=== PATIENT | male | born 1970 | race Caucasian/White ===

== ENCOUNTER 2024-05-01 07:26 | Emergency (ER) | payer OTHER, BC, SELFPAY ==
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
[2024-05-01 07:30] VITALS: BP 140/91; PULSE 68; RESP 16; TEMP 36.8; O2SAT 97
[2024-05-01] MEDS: MORPHINE SULFATE (*CRX) 4 MG/ML INJ IV PUSH ×2 (07:53→10:16)
[2024-05-01 08:10] LABS: Basophils Percent Auto 0.5 % (0.2-1.2); Eosinophils Absolute Auto 0.2 K/mm3 (0-0.3); Eosinophils Percent Auto 1.9 % (0-4.4); Hematocrit 43.8 % (42.0-52.0); Hemoglobin 14.9 g/dL (14.0-18.0); Immature Granulocyte Absolute 0.03 K/mm3 (0.00-0.031); Immature Granulocyte Percent A 0.4 % (0-0.5); Lymphocytes Absolute Auto 1.26 K/mm3 (0.9-3.2); Mean Corpuscular Hemoglobin 31.8 pg (26-34); Mean Corpuscular Volume 93.6 fl (80-100); Mean Platelet Volume 9.6 fl (7.4-10.4); Monocytes Absolute Auto 0.9 K/mm3 (0.1-0.6); Monocytes Percent Auto 10.9 % (2.6-8.5); Neutrophils Percent Auto 71.3 % (45.5-73.1); Platelet Count Result 201 k/mm3 (150-375); Red Blood Count 4.68 M/mm3 (4.6-6.20); Red Cell Distribution Width 12.3 % (11.5-14.5); White Blood Count 8.4 K/mm3 (4.5-10.0)
[2024-05-01 08:18] LABS: Estimated CRCL calculation 73 ml/min; Estimated Glomerular Filt Rate > 60
[2024-05-01 08:20] LABS: Alanine Aminotransferase 24 U/L (6-50); Albumin Level 4.5 g/dL (3.5-5.1); Alkaline Phosphatase 64 U/L (38-126); Anion Gap 3 mmol/L (4-12); Aspartate Amino Transferase 31 U/L (17-59); Bilirubin,Total 1.1 mg/dL (0.2-1.3); Blood Urea Nitrogen 13 mg/dL (9-20); Calcium 9.1 mg/dL (8.4-10.2); Carbon Dioxide 29 mmol/L (22-30); Chloride 106 mmol/L (98-107); Estimated CRCL calculation 80 ml/min; Estimated Glomerular Filt Rate > 60; Glucose 111 mg/dL (65-110); Potassium 4.4 mmol/L (3.4-5.0); Sodium 138 mmol/L (137-145)
[2024-05-01 08:26] LABS: Add Urine Microscopic? YES; Appearance Urine Clear (Clear); Bilirubin Urine Negative (Negative); Blood Urine 1+ (Negative); Color Urine Yellow (Yellow); Glucose Urine UA Negative (Negative); Ketones Urine Trace mg/dL (Negative); Leukocyte Esterase Ur 1+ LEU/UL (Negative); Nitrate Urine Negative (Negative); Protein Urine 1+ mg/dL (Negative); Specific Grav Ur 1.025 (1.001-1.035); pH Urine 6.5 (5.0-9.0)
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
[2024-05-01 08:46] LABS: Bacteria Urine None Seen /hpf; Non Pathogenic Casts 0-2; Squamous Epithelial Cell Urine None Seen /hpf (Few)
[2024-05-01 08:48] VITALS: BP 126/82; PULSE 69; RESP 16; O2SAT 95
[2024-05-01 11:02] VITALS: BP 129/81; PULSE 71; RESP 16; TEMP 36.4; O2SAT 96
== END 2024-05-01 11:07 | disposition home or self-care (01) ==
PROVIDERS: Emergency Provider Emergency Medicine
DX: S32.019A Unspecified fracture of first lumbar vertebra, initial encounter for closed fracture (principal); S32.029A Unspecified fracture of second lumbar vertebra, initial encounter for closed fracture; S32.039A Unspecified fracture of third lumbar vertebra, initial encounter for closed fracture; W18.2XXA Fall in (into) shower or empty bathtub, initial encounter; N39.0 Urinary tract infection, site not specified
CPT/HCPCS: 36415; 74177; 80053; 81001; 85025; 87086; 96374; 96376; 99284; J2270; Q9967

== ENCOUNTER 2024-11-13 10:38 | Inpatient (IN) | payer BC, SELFPAY ==
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
[2024-11-13 10:46] VITALS: BP 135/84; PULSE 77; RESP 18; TEMP 36.8; O2SAT 99
[2024-11-13] MEDS: MORPHINE SULFATE (*CRX) 4 MG/ML INJ IV PUSH (11:39)
[2024-11-13 11:44] LABS: Hematocrit 44.4 % (42.0-52.0); Hemoglobin 14.7 g/dL (14.0-18.0); Immature Granulocyte Percent A 0.8 % (0-0.5); Lymphocytes Absolute Auto 0.77 K/mm3 (0.9-3.2); Mean Corpuscular HGB Conc 33.1 g/dl (32-36); Mean Corpuscular Hemoglobin 30.7 pg (26-34); Mean Corpuscular Volume 92.7 fl (80-100); Nucleated Red Blood Cells Absolute Auto 0.000 K/mm3 (0.0-0.012); Nucleated Red Blood Cells Perc 0.0 % (0.0-0.2); Platelet Count Result 175 k/mm3 (150-375); Red Blood Count 4.79 M/mm3 (4.6-6.20); White Blood Count 11.0 K/mm3 (4.5-10.0)
[2024-11-13 11:55] LABS: INR 1.1; Prothrombin Time 14.6 Seconds (11.1-14.7)
[2024-11-13 11:56] LABS: Alanine Aminotransferase 27 U/L (6-50); Albumin Level 4.4 g/dL (3.5-5.1); Alkaline Phosphatase 69 U/L (38-126); Anion Gap 8 mmol/L (4-12); Aspartate Amino Transferase 34 U/L (17-59); Bilirubin,Total 0.9 mg/dL (0.2-1.3); Blood Urea Nitrogen 17 mg/dL (9-20); Calcium 9.4 mg/dL (8.4-10.2); Carbon Dioxide 26 mmol/L (22-30); Chloride 106 mmol/L (98-107); Estimated CRCL calculation 68 ml/min; Estimated Glomerular Filt Rate > 60; Glucose 110 mg/dL (65-110); Partial Thromboplastin Time 24.4 Seconds (22.3-36.8); Potassium 4.4 mmol/L (3.4-5.0); Sodium 140 mmol/L (137-145); Total Protein 8.0 g/dL (6.3-8.2)
[2024-11-13 12:01] VITALS: PULSE 74; RESP 16; O2SAT 100
--- NOTE | 2024-11-13 12:09 | PC.NURSE ---
MD made aware of pt continued pain.
[2024-11-13] MEDS: HYDROmorphone HCL INJ (*CRX) 2 MG/ML VIAL 1 MG IV PUSH ×3 (12:13→21:28)
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
[2024-11-13 12:21] VITALS: BP 130/88
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
[2024-11-13 13:30] VITALS: BP 139/94; PULSE 97; RESP 20; O2SAT 96
[2024-11-13 15:00] VITALS: BMI 28.7
[2024-11-13 15:40] LABS: Add Urine Microscopic? YES; Appearance Urine Clear (Clear); Glucose Urine UA Negative (Negative); Leukocyte Esterase Ur Trace LEU/UL (Negative); Nitrate Urine Negative (Negative); Specific Grav Ur 1.026 (1.001-1.035)
[2024-11-13 15:41] LABS: Non Pathogenic Casts 0-2
--- NOTE | 2024-11-13 15:50 | ADMGEN ---
This patient, Apolinar Zepeda, was admitted to [address] [place] [address] Room 300-01. Patient/family oriented to hospital policies and general routines including ID bracelet, bed and alarms, visiting hours, pain management, procedures, bathroom and other care routines, personal items, smoking policy, room service/diet, and visiting hours. Information on how to activate the Rapid Response Team has been discussed. Patient/Family are encouraged to report perceived risks to care and to ask questions if they do not understand what they are told or what they should do.
[2024-11-13] MEDS: LACTATED RINGERS 1,000 ML 75 ML IV CONT (16:09)
[2024-11-13 21:01] VITALS: O2SAT 96
[2024-11-13 21:32] VITALS: BP 127/79; PULSE 84; RESP 20; TEMP 38.4; O2SAT 96
[2024-11-13] MEDS: HYDROcodone/acetaminophen (*CRX) 5-325 MG TABLET 1 TAB PO (22:11)
[2024-11-14] VITALS (12 sets, daily range): BP systolic 110–132; BP diastolic 64–82; PULSE 68–83; RESP 12–18; TEMP 36.4–37.7; O2SAT 93–99
[2024-11-14] MEDS: HYDROmorphone HCL INJ (*CRX) 2 MG/ML VIAL 1 MG IV PUSH ×2 (04:14→11:26)
--- NOTE | 2024-11-14 08:14 | ECG_ITS ---
Test Date: 2024-11-14 08:18:23 Measurements Intervals [place] Rate: 73 P: 23 UT: 205 QRS: 12 QRSD: 102 T: 34 QT: 372 QTc: 410 Interpretive Statements SINUS RHYTHM BASELINE ARTIFACT- I, II, III, AVR, AVL, AVF NORMAL ECG No previous ECG available for comparison Electronically Signed On 11-14-2024 08:33:24 CDT by Alessandro Yuen D.O.
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
--- NOTE | 2024-11-14 08:31 | WPDHPUPDATE1 ---
History and Physical Update Update Date/Time: 11/14/24 08:31 History and Physical has been reviewed, including an updated exam of the patient. There are NO changes in the patient's condition. Risks, benefits, and alternatives have been discussed and questions answered. Patient agrees to proceed with procedure. The procedure which is a left hip percutaneous screw fixation was discussed with his significant other Mary and also with the patient. They understand the risks benefits alternatives and complications of this procedure. They include but are not limited to infection nonunion malunion, loss of blood supply to the femoral head, DVT, possibility of the requirement for a total hip arthroplasty in the event of malunion nonunion or loss of blood supply to the femoral head. They understand the treatment plan and agree that this is the best course of action given the patient's age and activity level. He will be toe-touch weight-bearing for a period of 6 weeks. He will be anticoagulated with aspirin 81 mg twice a day for 6 weeks.
[2024-11-14] MEDS: BUPIVACAINE/EPINEPHRINE 0.5% 30 ML VIAL INFILTRATE (09:22)
[2024-11-14] MEDS: KETOROLAC 15 MG/ML VIAL (*BKC) IV PUSH (09:42)
[2024-11-14] MEDS: LACTATED RINGERS 1,000 ML 30 ML IV CONT (09:53)
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
--- NOTE | 2024-11-14 10:10 | WPDANESEPPF ---
Anes - Initial Pre Proc Eval Procedure: Operation Date: 11/14/24 08:00 Proposed Procedures p Hip Pinning Cannulated Screws(Left) - Kevin Brannon MD Date/Time: 11/14/24 10:10 Surgeon: Edward Cantu MD Pre Op Diagnosis: Hip fracture Patient Data Age: 53 Gender: M Height: 1.78 m Weight: 90.9 kg Last Vital Signs Temp 36.8 C 11/14/24 09:53 Pulse 73 11/14/24 09:53 Resp 12 11/14/24 09:53 BP 110/69 11/14/24 09:53 Pulse Ox 93 11/14/24 09:53 O2 Del Method Simple Face Mask 11/14/24 09:53 O2 Flow Rate 10 11/14/24 09:53 FiO2 21 11/13/24 21:01 Allergies Allergy/AdvReac Type Severity Reaction Status Date / Time No Known Allergies Allergy Verified 05/01/24 07:29 Home Medications ?Medication ?Instructions ?Recorded ?Confirmed ?Type bupropion HCl 150 mg 24 hr tablet, 150 mg PO DAILY 11/13/24 11/13/24 History extended release sertraline 100 mg tablet 150 mg PO DAILY 11/13/24 11/13/24 History Laboratory Tests 11/13/24 11/13/24 11:39 15:27 WBC 11.0 H K/mm3 (4.5-10.0) RBC 4.79 M/mm3 (4.6-6.20) Hgb 14.7 g/dL (14.0-18.0) Hct 44.4 % (42.0-52.0) MCV 92.7 fl (80-100) MCH 30.7 pg (26-34) MCHC 33.1 g/dl (32-36) RDW 13.5 % (11.5-14.5) Plt Count 175 k/mm3 (150-375) MPV 9.6 fl (7.4-10.4) Immature Gran % (Auto) 0.8 H % (0-0.5) Neut % (Auto) 82.9 H % (45.5-73.1) Lymph % (Auto) 7.0 L % (18.3-44.2) [place] % (Auto) 7.8 % (2.6-8.5) Eos % (Auto) 1.1 % (0-4.4) Baso % (Auto) 0.4 % (0.2-1.2) Lymph # (Auto) 0.77 L K/mm3 (0.9-3.2) [place] # (Auto) 0.9 H K/mm3 (0.1-0.6) Eos # (Auto) 0.1 K/mm3 (0-0.3) Baso # (Auto) 0.0 K/mm3 (0.0-0.1) Abs Immat Gran (auto) 0.09 H K/mm3 (0.00-0.031) Absolute Neuts (auto) 9.1 H K/mm3 (1.3-6.7) Absolute Nucleated RBC 0.000 K/mm3 (0.0-0.012) Nucleated RBC % 0.0 % (0.0-0.2) PT 14.6 Seconds (11.1-14.7) INR 1.1 APTT 24.4 Seconds (22.3-36.8) Sodium 140 mmol/L (137-145) Potassium 4.4 mmol/L (3.4-5.0) Chloride 106 mmol/L (98-107) Carbon Dioxide 26 mmol/L (22-30) Anion Gap 8 mmol/L (4-12) BUN 17 mg/dL (9-20) Creatinine 1.19 mg/dL (0.7-1.3) Estim Creat Clear Calc 68 ml/min Estimated GFR > 60 (59 - ) Glucose 110 mg/dL (65-110) Calcium 9.4 mg/dL (8.4-10.2) Total Bilirubin 0.9 mg/dL (0.2-1.3) AST 34 U/L (17-59) ALT 27 U/L (6-50) Alkaline Phosphatase 69 U/L (38-126) Total Protein 8.0 g/dL (6.3-8.2) Albumin 4.4 g/dL (3.5-5.1) Urine Color Dark yellow (Yellow) Urine Appearance Clear (Clear) Urine pH 5.5 (5.0-9.0) Ur Specific [place] 1.026 (1.001-1.035) Urine Protein 1+ H mg/dL (Negative) Urine Glucose (UA) Negative mg/dL (Negative) Urine Ketones 2+ H mg/dL (Negative) Ur Blood (Man) Negative (Negative) Urine Nitrate Negative (Negative) Urine Bilirubin Negative (Negative) Urine Urobilinogen 1.0 mg/dL (<2.0) Leukocyte Esterase Rfl Trace H GURWINDER/UL (Negative) Urine RBC 0-2 /hpf (0-2) Urine WBC 0-5 /hpf (0-3) Ur Squamous Epith Cells None seen /hpf (Few) Urine Bacteria None seen /hpf Urine Casts 0-2 Blood Type A Positive Antibody Screen Negative Patient hx anesthesia problems: none Family hx anesthesia problems: none Results Review: All pre-operative results and documents have been reviewed as part of the pre-operative evaluation. [facility] Past Medical History Medical History (Updated 11/14/24 @ 10:18 by Orlando Milian DO) Bicuspid aortic valve Closed right ankle fracture Depression Social History Social History (Updated 11/14/24 @ 10:10 by Orlando Milian DO) Smoking status: Never smoker Alcohol intake: current Drinks per week: 14 Substance use type: marijuana Other substance usage details: daily Do You Feel Safe in your Home?: Yes Lack of Transportation: No Lack of Food: Never True Current Housing: I Have Housing Concerned About Future Housing: No Difficulty Paying Gas/Electric Bills: No Difficulty Paying for Meds: No Currently Unemployed: No Education: Bachelor's Degree Difficulty w/ Childcare or Family Care: No Spiritual care concerns: No Anes - Eval Final PreProcedure Day of Procedure 11/14/24 10:10 Patient weight: overweight Heart: regular rate and rhythm Lungs: clear to auscultation Airway: Mallampati scale class II Neurological: alert and oriented Last oral intake: >/= 8 hours ASA classification: III Emergent: no Anesthetic plan: proceed Anesthesia type and monitoring: general LMA and standard monitoring Results Review: All pre-operative results and documents have been reviewed as part of the pre-operative evaluation. Informed Consent: The patient's anesthetic plan and its attendant risks and benefits were discussed with the patient/family/POA. Questions were solicited and answers provided to the satisfaction of the patient/family/POA.
[2024-11-14] MEDS: buPROPion HCL XL (24 HR) 150 MG TABCR PO (11:25)
[2024-11-14] MEDS: SERTRALINE HCL 50 MG TABLET 150 MG PO (11:26)
[2024-11-14] MEDS: ACETAMINOPHEN 325 MG TABLET 650 MG PO ×2 (11:27→17:04)
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
[2024-11-14] MEDS: SENNA/DOCUSATE SODIUM TABLET 2 TAB PO (17:04)
[2024-11-14] MEDS: ceFAZolin 2 GM/D5W 50 ML 2 GM/50 ML BAG IVPB (17:04)
[2024-11-14] MEDS: HYDROcodone/acetaminophen (*CRX) 5-325 MG TABLET 1 TAB PO ×2 (17:11→20:57)
[2024-11-14] MEDS: FAMOTIDINE 20 MG TABLET PO (20:58)
[2024-11-15] MEDS: ceFAZolin 2 GM/D5W 50 ML 2 GM/50 ML BAG IVPB ×2 (01:04→09:52)
[2024-11-15] MEDS: HYDROcodone/acetaminophen (*CRX) 5-325 MG TABLET 1 TAB PO ×3 (01:04→20:10)
[2024-11-15] MEDS: HYDROcodone/acetaminophen (*CRX) 10-325 MG TABLET 1 TAB PO ×3 (02:09→17:10)
[2024-11-15 04:46] VITALS: BP 126/62; PULSE 77; RESP 20; TEMP 36.4; O2SAT 96
[2024-11-15 06:42] LABS: Hematocrit 38.1 % (42.0-52.0); Hemoglobin 12.1 g/dL (14.0-18.0); Immature Granulocyte Percent A 0.5 % (0-0.5); Immature Platelet Fraction Pct 3.2 % (0.9-11.2); Lymphocytes Absolute Auto 1.28 K/mm3 (0.9-3.2); Mean Corpuscular HGB Conc 31.8 g/dl (32-36); Mean Corpuscular Hemoglobin 30.7 pg (26-34); Mean Corpuscular Volume 96.7 fl (80-100); Nucleated Red Blood Cells Absolute Auto 0.000 K/mm3 (0.0-0.012); Nucleated Red Blood Cells Perc 0.0 % (0.0-0.2); Platelet Count Result 126 k/mm3 (150-375); Red Blood Count 3.94 M/mm3 (4.6-6.20); White Blood Count 8.5 K/mm3 (4.5-10.0)
[2024-11-15 06:50] LABS: Anion Gap 6 mmol/L (4-12); Blood Urea Nitrogen 13 mg/dL (9-20); Calcium 8.2 mg/dL (8.4-10.2); Carbon Dioxide 28 mmol/L (22-30); Chloride 104 mmol/L (98-107); Estimated CRCL calculation 76 ml/min; Estimated Glomerular Filt Rate > 60; Glucose 101 mg/dL (65-110); Potassium 3.4 mmol/L (3.4-5.0); Sodium 138 mmol/L (137-145)
[2024-11-15 08:00] VITALS: BP 112/75; PULSE 71; RESP 18; TEMP 37.1; O2SAT 96; O2SAT 97
[2024-11-15] MEDS: FAMOTIDINE 20 MG TABLET PO ×2 (08:27→20:10)
[2024-11-15] MEDS: SERTRALINE HCL 50 MG TABLET 150 MG PO (08:27)
[2024-11-15] MEDS: SENNA/DOCUSATE SODIUM TABLET 2 TAB PO ×2 (08:27→17:07)
[2024-11-15] MEDS: buPROPion HCL XL (24 HR) 150 MG TABCR PO (08:27)
[2024-11-15] MEDS: ACETAMINOPHEN 325 MG TABLET 650 MG PO ×2 (11:58→17:07)
[2024-11-15 12:00] VITALS: BP 130/84; PULSE 72; RESP 18; TEMP 36.8; O2SAT 96
[2024-11-15] MEDS: HYDROmorphone HCL INJ (*CRX) 2 MG/ML VIAL 1 MG IV PUSH (12:01)
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
[2024-11-15 16:00] VITALS: BP 102/70; PULSE 78; RESP 18; TEMP 36.7; O2SAT 97
[2024-11-15 19:23] VITALS: BP 116/72; PULSE 77; RESP 16; TEMP 36.7; O2SAT 96
[2024-11-16] VITALS: BP 135/80; PULSE 67; RESP 20; TEMP 36.9; O2SAT 97
[2024-11-16] MEDS: HYDROcodone/acetaminophen (*CRX) 5-325 MG TABLET 1 TAB PO ×2 (00:27→05:26)
[2024-11-16 04:00] VITALS: BP 131/86; PULSE 68; RESP 20; TEMP 36.8; O2SAT 96
[2024-11-16] MEDS: HYDROcodone/acetaminophen (*CRX) 10-325 MG TABLET 1 TAB PO ×2 (07:29→12:51)
[2024-11-16 08:00] VITALS: BP 135/78; PULSE 69; RESP 18; TEMP 36.2; O2SAT 94; O2SAT 96
[2024-11-16 08:18] LABS: Hematocrit 38.2 % (42.0-52.0); Hemoglobin 12.3 g/dL (14.0-18.0); Immature Platelet Fraction Pct 3.4 % (0.9-11.2); Mean Corpuscular HGB Conc 32.2 g/dl (32-36); Mean Corpuscular Hemoglobin 30.7 pg (26-34); Mean Corpuscular Volume 95.3 fl (80-100); Platelet Count Result 137 k/mm3 (150-375); Red Blood Count 4.01 M/mm3 (4.6-6.20); White Blood Count 7.0 K/mm3 (4.5-10.0)
[2024-11-16] MEDS: SENNA/DOCUSATE SODIUM TABLET 2 TAB PO (08:27)
[2024-11-16] MEDS: buPROPion HCL XL (24 HR) 150 MG TABCR PO (08:27)
[2024-11-16] MEDS: ASPIRIN 81 MG ENTERIC TABLET PO (08:27)
[2024-11-16] MEDS: FAMOTIDINE 20 MG TABLET PO (08:27)
[2024-11-16] MEDS: SERTRALINE HCL 50 MG TABLET 150 MG PO (08:28)
[2024-11-16] MEDS: ACETAMINOPHEN 325 MG TABLET 650 MG PO (11:20)
[2024-11-16 12:00] VITALS: BP 126/92; PULSE 71; RESP 18; TEMP 36.1; O2SAT 95
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
== END 2024-11-16 13:34 | disposition home or self-care (01) | DRG 482 ==
LOC: ANHED 12:34 → ANH3MEDSUR 14:44
PROVIDERS: Nurse Practitioner; Orthopaedic Surgery; Admitting Provider Internal Medicine; Emergency Provider Emergency Medicine; Visit Provider Physician Assistant
PROC: 0QS734Z Reposition Left Upper Femur with Internal Fixation Device, Percutaneous Approach (ICD-10-PCS; principal; 2024-11-14 08:00)
DX: S72.032A Displaced midcervical fracture of left femur, initial encounter for closed fracture (principal); V19.3XXA Pedal cyclist (driver) (passenger) injured in unspecified nontraffic accident, initial encounter
CPT/HCPCS: 36415; 70450; 71045; 72192; 73502; 80048; 80053; 81001; 85025; 85027; 85055; 85610; 85730; 86850; 86900; 86901; 93005; 96361; 96374; 96375; 96376; 97110; 97116; 97161; 97165; 97530; 97535; 99199; 99285; A9270; C1713; C1769; G0378; J0690; J1100; J1171; J1885; J2250; J2270; J2371; J2405; J2704; J3010; J7120

== ENCOUNTER 2025-02-01 08:00 | Outpatient (RCR) | payer BC, SELFPAY ==
--- NOTE | 2024-11-22 16:24 | OPREHPOC ---
Outpatient Therapy Plan of Care This is a Multidisciplinary Plan of Care that may contain components documented by all disciplines (PT, OT, and ST.) PT Problem 1 PT Problem #1 Knowledge Deficit PT Goal 1 Goal / Goal Update [place] with HEP Target Visit 4 PT Goal 2 Goal / Goal Update Report no pain greater than 2/10 Target Visit 8 PT Problem 2 PT Problem #2 Impaired Range of Motion PT Goal 1 Goal / Goal Update 1. Achieve 10 degrees of left hip extension 2. Improve left hip abduction to 40 degrees Target Visit 10 PT Problem 3 PT Problem #3 Impaired Gait PT Goal 1 Goal / Goal Update Ambulate independently of AD Target Visit 10 PT Problem 4 PT Problem #4 Impaired Strength PT Goal 1 Goal / Goal Update 1. Improve left hip flexion to 4+/5 to improve foot clearance 2. Improve left hip abduction to 4/5 to improve lateral stability with ADLs Target Visit 10
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
--- NOTE | 2024-12-24 08:48 | OPREHPOC ---
Outpatient Therapy Plan of Care This is a Multidisciplinary Plan of Care that may contain components documented by all disciplines (PT, OT, and ST.) PT Problem 1 PT Problem #1 Knowledge Deficit PT Goal 1 Goal / Goal Update [place] with HEP 12-24-24 progress goal met continue towards goal to progress HEP and education for gait training Target Visit 18 PT Goal 2 Goal / Goal Update Report no pain greater than 2/10 12-24-24 progress goal not met, 4/10 continue towards goal Target Visit 18 PT Problem 2 PT Problem #2 Impaired Range of Motion PT Goal 1 Goal / Goal Update 1. Achieve 10 degrees of left hip extension 2. Improve left hip abduction to 40 degrees 12-24-24 progress goal 2 met, goal 1 is 5' continue towards goal 1 Target Visit 18 PT Problem 3 PT Problem #3 Impaired Gait PT Goal 1 Goal / Goal Update Ambulate independently of AD 12-24-24 progress goal not met, is using a cane continue towards goal Target Visit 18 PT Problem 4 PT Problem #4 Impaired Strength PT Goal 1 Goal / Goal Update 1. Improve left hip flexion to 4+/5 to improve foot clearance 2. Improve left hip abduction to 4/5 to improve lateral stability with ADLs 12-24-24 progress goals not met continue toward ADD # 3- single leg standing L x 10 seconds with good stability #4- ambulate 2 minute walking test without device, 450' Target Visit 18
--- NOTE | 2024-12-24 08:49 | PTOPPROG ---
Assessment and note entered by Zara Naidu, PT Assessment Status Progress Diagnosis Fracture of neck of left femur ICD-10 Condition Codes (PT) Pain in left hip M25.552 Onset 11/14/24 Subjective Information have started walking some in the house without the cane in the house, but use it all other times; have been back to work about 2 weeks; doing all the exercises at home; want to continue with therapy. PAIN: range in the past week 0-4/10; lateral L hip increase pain; when first wake up in AM decrease pain: move, change positions; take ibuprofen PRN- 0-1x/day awaken from sleeping 2x/night due to hip pain; sleep on sides--instruct on use of pillow between LEs for hip position Assessment PT Clinical Summary Apolinar has received 10 PT sessions. 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 The goals were partially achieved. Continue PT for further increase in strength and gait skills, with progression of HEP. Plan of Care Interventions Gait Training,Manual Therapy,Neuro Re-education, Therapeutic Activities,Therapeutic Exercise PT Services Indicated Yes Treatment Frequency and 1-2x/wk for 8 visits Duration These treatments will address the objective and functional deficits as defined above. The patient will be advanced safely and appropriately in order for the patient to progress towards his/her prior level of function. Additional exercises will be introduced and as well as a comprehensive home exercise program upon discharge, if needed, ?to ensure carryover of functional gains achieved in the clinic. This treatment plan has been reviewed and agreement upon by the patient.
--- NOTE | 2025-02-01 08:47 | OPREHPOC ---
Outpatient Therapy Plan of Care This is a Multidisciplinary Plan of Care that may contain components documented by all disciplines (PT, OT, and ST.) PT Problem 1 PT Problem #1 Knowledge Deficit PT Goal 1 Goal / Goal Update [place] with HEP 12-24-24 progress goal met continue towards goal to progress HEP and education for gait training 02-01-25 progress/HOLD PT goal met await new orders from dr to resume PT Target Visit 18 PT Goal 2 Goal / Goal Update Report no pain greater than 06/28 12-24-24 progress goal not met, 08/26 continue towards goal 02-01-25 progress/HOLD PT goal met await new orders from dr to resume PT Target Visit 18 PT Problem 2 PT Problem #2 Impaired Range of Motion PT Goal 1 Goal / Goal Update 1. Achieve 10 degrees of left hip extension 2. Improve left hip abduction to 40 degrees 12-24-24 progress goal 2 met, goal 1 is 5' continue towards goal 1 02-01-25 progress/HOLD PT goal 2 met await new orders from dr to resume PT Target Visit 18 PT Problem 3 PT Problem #3 Impaired Gait PT Goal 1 Goal / Goal Update Amb[place] independently of AD 12-24-24 progress goal not met, is using a cane continue towards goal 02-01-25 progress/HOLD PT goal met- now using crutches due to TDWB status await new orders from dr to resume PT Target Visit 18 PT Problem 4 PT Problem #4 Impaired Strength PT Goal 1 Goal / Goal Update 1. Improve left hip flexion to 4+/5 to improve foot clearance 2. Improve left hip abduction to 4/5 to improve lateral stability with ADLs 12-24-24 progress goals not met continue toward ADD # 3- single leg standing L x 10 seconds with good stability #4- ambulate 2 minute walking test without device, 450' 02-01-25 progress/HOLD PT goal 1 met; #3 not assessed due to change of status to TDWB await new orders from dr to resume PT Target Visit 18
--- NOTE | 2025-02-01 08:48 | PTOPPROG ---
Assessment and note entered by Zara Naidu PT PT progress/ HOLD PT Assessment Status Progress Diagnosis Fracture of neck of left femur ICD-10 Condition Codes (PT) Pain in left hip M25.552 Onset 11/14/24 Subjective Information return to dr in 2 weeks, is to stay TDWB until then, doing the crutches; have been doing the exercises; Assessment PT Clinical Summary Apolinar has received a total of 18 PT sessions. During this treatment time, his weight bearing status was changed to TDWB on L LE. So he is now using crutches instead of the cane. Compared to the last progress report: pain from 0-4/10 to 0-2/10- lateral hip and L lateral knee; is awakening from knee pain about 1x/night, and pain is eased with moving and changing position; self assessment with LE functional scale from 31 to 40% limitation in activity level; 2 minute walking test distance from 360' with cane, WBAT to 320' with crutches, TDWB on L LE; good gait pattern; increase strength of L hip, except hip abduction increases pain in lateral hip; education completed for HEP and mobility/gait training. The goals were partially met. He had a change in WB status, which limited his progression. Plan to HOLD PT until next dr suresh, on 02-15-25, to assess his hip and further treatment plan from . If PT is to continue, pt will obtain new PT orders Plan of Care Interventions Gait Training,Manual Therapy,Neuro Re-education, Therapeutic Activities,Therapeutic Exercise PT Services Indicated Yes Treatment Frequency and HOLD PT until next dr suresh, on 02-15-25, to assess Duration his hip and further treatment plan from . If PT is to continue, pt will obtain new PT orders These treatments will address the objective and functional deficits as defined above. The patient will be advanced safely and appropriately in order for the patient to progress towards his/her prior level of function. Additional exercises will be introduced and as well as a comprehensive home exercise program upon discharge, if needed, ?to ensure carryover of functional gains achieved in the clinic. This treatment plan has been reviewed and agreement upon by the patient.
--- NOTE | 2025-03-15 11:39 | PCPTNOTE ---
PHYSICAL THERAPY DISCHARGE 03-15-25 Dr. Clovis Jiang did not return for any further treatment after the progress report/reassessment on 02-01-25. Discharge PT.
== END 2025-02-20 23:59 | disposition home or self-care (01) ==
LOC: ANHPT 08:00
PROVIDERS: Visit Provider Orthopaedic Surgery
DX: S72.002A Fracture of unspecified part of neck of left femur, initial encounter for closed fracture (principal); M25.552 Pain in left hip
CPT/HCPCS: 97110; 97116; 97140; 97161; 97530